=== PATIENT | male | born 1970 | race Caucasian/White ===

== ENCOUNTER 2016-05-26 16:41 | Emergency (ER) | payer OTHER ==
[~2016-05-26] VITALS: Ht 185.4 cm; Wt 147.5 kg
[~2016-05-26 16:41] MED LIST: ULTRAM50 MG PO
[2016-05-26 16:59] LABS: HEMATOCRIT 46.3 % (38.0-50.0); MCH 30.5 PG (29.0-34.0); MCHC 33.9 G/DL (30.0-36.0); MCV 90.1 FL (86-99); MEAN PLAT.VOLUME 8.7 uM^3 (9.0-12.4); PLATELET COUNT 497 K/uL (156-360); RBC DIS.WIDTH-CV 13.4 % (11.8-14.6); RBC DIS.WIDTH-SD 43.2 % (39-53); RED BLOOD COUNT 5.14 M/uL (4.00-5.50); WHITE BLOOD COUNT 20.4 K/uL (4.1-10.2)
[2016-05-26 17:09] LABS: CHLORIDE 102 mEq/L (99-109); POTASSIUM 3.5 mEq/L (3.7-5.4); SODIUM 137 mEq/L (136-147)
[2016-05-26 17:11] LABS: GLUCOSE 343 mg/dL (70-99)
[2016-05-26 17:12] LABS: ANION GAP 16 MEQ/L (2-14)
[2016-05-26 17:13] LABS: TOTAL BILIRUBIN 0.4 mg/dL (0.0-1.0)
[2016-05-26 17:14] LABS: ALKALINE PHOSPHATASE 76 IU/L (3-129)
[2016-05-26 17:16] LABS: GFR ESTIMATE (CALCULATED) > 59 mL/min/; UREA NITROGEN (BUN) 9 mg/dL (9-23)
[2016-05-26 17:20] LABS: TROP-I INTERPRETATION NEGATIVE; TROPONIN-I < 0.01 ng/mL (0.0-0.30)
[2016-05-26 17:29] LABS: SERUM ETHYL ALCOHOL < 10 mg/dL
[2016-05-26 19:22] VITALS: BP 146/118
== END 2016-05-26 19:20 | disposition left against medical advice (07) ==
LOC: EME 16:41
PROVIDERS: Emergency Medicine
DX: T40.1X1A Poisoning by heroin, accidental (unintentional), initial encounter (principal); E87.2 Acidosis; I46.9 Cardiac arrest, cause unspecified; F17.200 Nicotine dependence, unspecified, uncomplicated
CPT/HCPCS: 71010; 80053; 81003; 83605; 84484; 85027; 90839; 93005; 99281; 99285; G0480; J2310; J2405; J7030